=== PATIENT | male | born 1970 | race Caucasian/White ===

== ENCOUNTER 2023-06-16 21:17 | Emergency (ER) | payer SELFPAY ==
[2023-06-16 21:27] VITALS: BP 102/75; PULSE 87; RESP 20; TEMP 36.8; O2SAT 96; BMI 31.2
--- NOTE | 2023-06-16 21:48 | ED.DENTAL ---
HPI - Dental/Oral General Time Seen by Provider: 21:48 Date Seen: 06/16/23 Chief complaint: Dental/Oral/Mouth Injury/Pain Stated complaint: abscess jaw - L Side Time Seen by Provider: 06/16/23 21:26 Source: patient and RN notes reviewed Mode of arrival: ambulatory Limitations: no limitations History of Present Illness HPI Narrative: Patient is a 53-year-old male that started noting swelling in his left jaw this morning. He did have what sounds like a root canal and not a dental extraction after looking in his mouth. He states the dentist told him it may happen again. He has no visible extracted teeth on left lower jaw. The jaw does hurting. There is no fevers or chills. He states last time he had this he just took antibiotics, his jaw was much more swollen. He knows he needs to see the dentist. He is penicillin allergic, remembers taking clindamycin last time. He did try Tylenol and ibuprofen at home. Related Data Home Medications Medication Instructions Recorded Confirmed acetaminophen 500 mg tablet 1,000 mg PO Q4-6H PRN 06/16/23 06/16/23 (Tylenol Extra Strength) ibuprofen 200 mg tablet (Advil) 800 mg PO Q6-8H PRN 06/16/23 06/16/23 Previous Rx's Medication Instructions Recorded clindamycin HCl 300 mg capsule 300 mg PO TID #29 caps 06/16/23 Allergies Allergy/AdvReac Type Severity Reaction Status Date / Time Penicillins Allergy Unknown Verified 06/16/23 21:33 Review of Systems Narrative: As per HPI. [facility] Medical History (Updated 06/16/23 @ 21:59 by Alyce Graf MD) H/O dental abscess ?Z87.19 - Personal history of other diseases of the digestive system (ICD-10) Surgical History (Updated 06/16/23 @ 21:35 by Seble Mittal RN) H/O right knee surgery ?Z98.890 - Other specified postprocedural states (ICD-10) Social History Smoking Status: Current every day smoker What tobacco products do you use: cigarettes Smoking packs per day: 0.5 Smoking cigarettes per day: 10.0 Second hand tobacco smoke exposure: No (0.5-1ppd) How often do you have a drink containing alcohol: never How often do you have six or more drinks on one occasion: Never AUDIT-C Alcohol total score: 0 Non-prescribed substance use: denies use service: No Exam Const: Vital Signs, click to edit/add: Vital Signs - 24 hr 06/16/23 21:27 Temperature 98.3 F Pulse Rate [Right Pulse Oximeter] 87 Respiratory Rate 20 Blood Pressure [Le ft Upper Arm] 102/75 Pulse Oximetry 96 Oxygen Delivery Me thod Room Air Patient has some obvious soft tissue swelling along the lower mandible on the left. There is no erythema. He has no trismus, can easily open his mouth. Dentition are in moderate repair, note no definitive tooth where the abscess may be coming from on the left lower jaw. There is a fluctuant area on the outside of the teeth along the jawline, can feel an abscess area when you palpate in his mouth and outside the jaw, do feel a probable abscess area, maybe a generous sized grape in size comparison. There is no submental adenopathy, no cervical adenopathy. CV regular rate and rhythm, no murmur, normal S1 and S2. Documenting provider has reviewed patient's vital signs: yes Course Course ED Course: Reviewed with patient that I would recommend local anesthesia of the area and an attempt at drainage of this abscess. Explained the procedure and he is declining. Reviewed with him that I do feel it is necessary to allow this abscess to drain and may continue to worsen if we do not drain it. He is declining, states it was worse last time and he just took antibiotics. He understands that if he is worsening, he really should see a dentist if possible, return to ED if needed. We will see if there is clindamycin in [facility]; if there is not, we will give a dose here and send the rest into the pharmacy to start tomorrow. Vital Signs Vital signs: Initial Vital Signs Temperature 98.3 F 06/16/23 21:27 Temperature Source Temporal Artery Scan 06/16/23 21:27 Pulse Rate 87 06/16/23 21:27 Respiratory Rate 20 06/16/23 21:27 Blood Pressure 102/75 06/16/23 21:27 Blood Pressure Mean 84 06/16/23 21:27 Blood Pressure Position Sitting 06/16/23 21:27 Pulse Oximetry 96 06/16/23 21:27 Oxygen Delivery Method Room Air 06/16/23 21:27 Vital Signs Temperature 98.3 F 06/16/23 21:27 Pulse Rate 87 06/16/23 21:27 Respiratory Rate 20 06/16/23 21:27 Blood Pressure 102/75 06/16/23 21:27 Pulse Oximetry 96 06/16/23 21:27 Oxygen Delivery Method Room Air 06/16/23 21:27 Temperature 98.3 F 06/16/23 21:27 Pulse Rate 87 06/16/23 21:27 Respiratory Rate 20 06/16/23 21:27 Blood Pressure 102/75 06/16/23 21:27 Pulse Oximetry 96 06/16/23 21:27 Oxygen Delivery Method Room Air 06/16/23 21:27 Critical Care Time Critical Care Time Critical Care Time: No Discharge Plan Discharge Clinical Impression: Dental abscess Patient Disposition: Home, Self-Care Condition: Stable Instructions: Dental Abscess (ED) Additional Instructions: Next dose of clindamycin due tomorrow morning, roller picker prescription and take as prescribed. Need to see a dentist as soon as possible. Can continue with Tylenol and ibuprofen per bottle directions as needed for pain management. If this area is worsening, develops fever, return to the ER for further evaluation if you cannot get in to see a dentist in this situation. Prescriptions: New clindamycin HCl 300 mg capsule 300 mg PO TID Qty: 29 0RF No Action acetaminophen [Tylenol Extra Strength] 500 mg tablet 1,000 mg PO Q4-6H PRN ibuprofen [Advil] 200 mg tablet 800 mg PO Q6-8H PRN Stand Alone Forms: MyHealth Info Instructions
[2023-06-16] MEDS: CLINDAMYCIN 150 MG CAPSULE 300 MG PO (22:20)
== END 2023-06-16 22:14 | disposition home or self-care (01) ==
LOC: ED 22:04
PROVIDERS: Emergency Provider Family Medicine
DX: K04.7 Periapical abscess without sinus (principal)
CPT/HCPCS: 99283; A9270